=== PATIENT | male | born 1990 | race American Indian/Alaskan Native ===

== ENCOUNTER 2016-05-17 20:31 | Emergency (ER) | payer MEDICAID ==
[2016-05-17] MEDS ORDERED: Ketorolac 30 MG/ML SDV IVPUSH ONE (20:47)
[2016-05-17] MEDS ORDERED: Sodium Chloride 0.9% 1,000 ML IV ONE ×2 (20:47→22:02)
--- NOTE | 2016-05-17 20:53 | EDM.PDOC ---
ED HPI GENERAL MEDICAL PROBLEM - General Chief Complaint: Fever Stated Complaint: FEVER OF 89 Time Seen by Provider: 05/17/16 20:52 Source of Information: Reports: Patient History Limitations: Reports: No limitations - History of Present Illness INITIAL COMMENTS - FREE TEXT/NARRATIVE: c/o fever chills shaking body aches all day, been drinking liquids took 8 tylenol today general Pain Score (Numeric/FACES): 7 - Related Data Allergies Allergy/AdvReac Type Severity Reaction Status Date / Time azithromycin [From Zithromax] Allergy Hives Verified 05/19/16 09:32 cefaclor [From Ceclor] Allergy Hives Verified 05/19/16 09:32 Penicillins Allergy Hives Verified 05/19/16 09:32 tree nut [Pecans] Allergy Swelling Verified 05/19/16 09:32 Home Meds: Home Meds Acetaminophen [Tylenol Extra Strength] 1,000 mg PO PRN 05/18/16 [History] Past Medical History - Past Health History Medical/Surgical History: Denies Medical/Surgical History Social & Family History - Family History Family Medical History: Noncontributory - Tobacco Use Smoking Status *Q: Current Every Day Smoker Years of Tobacco use: 4 Packs/Tins Daily: 1 Used Tobacco, but Quit: No Second Hand Smoke Exposure: No - Caffeine Use Caffeine Use: Reports: Coffee, Soda - Alcohol Use Days Per Week of Alcohol Use: 1 Number of Drinks Per Day: 6 Total Drinks Per Week: 6 - Recreational Drug Use Recreational Drug Use: No - Living Situation & Occupation Living situation: Reports: with significant other Occupation: employed ED ROS GENERAL - Review of Systems Review Of Systems: ROS reveals no pertinent complaints other than HPI. ED EXAM, GENERAL - Physical Exam Exam: See Below Exam Limited By: No limitations General Appearance: alert, WD/WN, mild distress, other (general discomfort) Ears: normal external exam, normal canal, hearing grossly normal Ear Exam: bilateral ear: TM dull Nose: clear rhinorrhea Throat/Mouth: Normal voice, No airway compromise, Inflammation Head: atraumatic Neck: non-tender, full range of motion Respiratory/Chest: no respiratory distress, lungs clear, normal breath sounds, no accessory muscle use Cardiovascular: regular rate, rhythm GI/Abdominal: soft, non tender Neurological: alert, oriented, normal cognition, normal gait, no motor/sensory deficits Psychiatric: normal affect, normal mood Skin Exam: Warm, Dry Lymphatic: no adenopathy Course - Vital Signs Last Recorded V/S: Last Vital Signs Temp 37.1 C 05/18/16 00:13 Pulse 83 05/18/16 00:13 Resp 17 05/18/16 00:13 BP 135/99 H 05/18/16 00:13 Pulse Ox 99 05/18/16 00:13 - Orders/Labs/Meds Meds: Medications Discontinued Medications Generic Name Dose Route Start Last Admin Trade Name Suzy PRN Reason Stop Dose Admin Acetaminophen/Hydrocodone Bitart 1 tab 05/17/16 21:20 05/17/16 21:23 [place] 325-10 Mg PO 05/17/16 21:21 1 tab ONETIME ONE Administration Sodium Chloride 1,000 mls @ 999 mls/hr 05/17/16 20:47 05/17/16 21:06 Normal Saline IV 05/17/16 21:47 999 mls/hr .BOLUS ONE Administration Sodium Chloride 1,000 mls @ 999 mls/hr 05/17/16 22:02 05/17/16 22:09 Normal Saline IV 05/17/16 23:02 999 mls/hr .BOLUS ONE Administration Ketorolac Tromethamine 30 mg 05/17/16 20:47 05/17/16 21:06 Toradol IVPUSH 05/17/16 20:48 30 mg ONETIME ONE Administration Morphine Sulfate 2 mg 05/17/16 22:02 05/17/16 22:13 Morphine IVPUSH 05/17/16 22:03 2 mg ONETIME ONE Administration Ondansetron HCl 4 mg 05/17/16 22:02 05/17/16 22:10 Zofran IV 05/17/16 22:03 4 mg ONETIME ONE Administration - Re-Assessments/Exams Free Text/Narrative Re-Assessment/Exam: 05/17/16 23:21 feeling much better post IV+Rx Departure - Departure Time of Disposition: 00:15 Disposition: Home, Self-Care 01 Condition: good Clinical Impression: Flu syndrome Instructions: Fever, Adult, [id number] Forms: ED Department Discharge Additional Instructions: 1) sleep as much as possible 2) drink lots of liquids 3) continue tylenol or motrin as needed for fever and body aches 4) recheck as needed
[2016-05-17] MEDS ORDERED: Acetaminophen/HYDROcodone 325-10 MG Tab PO ONE (21:20)
[2016-05-17] MEDS ORDERED: Morphine 2 MG/ML Syringe IVPUSH ONE (22:02)
[2016-05-17] MEDS ORDERED: Ondansetron 4 MG/2 ML SDV IV ONE (22:02)
[2016-05-18 00:26] VITALS: BP 135/99
== END 2016-05-18 00:13 | disposition home or self-care (01) ==
LOC: DL.ED 20:31
DX: J11.1 Influenza due to unidentified influenza virus with other respiratory manifestations (principal); F17.210 Nicotine dependence, cigarettes, uncomplicated; Z88.0 Allergy status to penicillin; Z88.1 Allergy status to other antibiotic agents; Z88.8 Allergy status to other drugs, medicaments and biological substances
CPT/HCPCS: 87081; 87430; 87804; 96361; 96374; 96375; 99283; A9270; J1885; J2270; J2405; J7030; 99284

== ENCOUNTER 2016-05-18 16:29 | Emergency (ER) | payer MEDICAID ==
[2016-05-18 16:38] VITALS: BP 138/87
[2016-05-18] MEDS ORDERED: Sodium Chloride 0.9% 10 ML Syringe FLUSH PRN (17:02)
[2016-05-18] MEDS ORDERED: Sodium Chloride 0.9% 1,000 ML IV ONE ×2 (17:04→18:16)
[2016-05-18] MEDS ORDERED: Ondansetron 8 MG in Sodium Chloride 0.9% 50 ML IV ONE (17:05)
[2016-05-18 17:40] LABS: CHLORIDE,CL 104 mmol/L (101-111); SODIUM,NA 137 mmol/L (135-145)
[2016-05-18] MEDS ORDERED: Ketorolac 30 MG/ML SDV IVPUSH ONE (18:17)
[2016-05-18] MEDS ORDERED: HYDROmorphone 1 MG/ML Syringe IVPUSH ONE (18:17)
[2016-05-18] MEDS ORDERED: Levofloxacin/Dextrose 5%-Water 500 MG in Premix Bag 1 BAG IV ONE (18:18)
[2016-05-18] MEDS ORDERED: Benzonatate 100 MG Cap PO ONE (19:15)
--- NOTE | 2016-05-19 03:06 | ER ---
SUBJECTIVE: The patient is 25-year-old male, who comes in with multiple complaints, having fever, headache, nausea, vomiting, been vomiting, he feels dehydrated, is not getting better. He was seen yesterday at night in the emergency room by Dr. Graves and was evaluated with some blood work. He had a negative strep, negative flu test, and he was treated with multiple medicines, felt better and was sent home. However, even though his fever is less of a problem today, it was worse yesterday, and all lab work yesterday was negative, he still feels sick. He feels dry. He has been having vomiting. He feels dehydrated, he tried to drink a bunch of water, he vomited it all up. He denies any diarrhea, any melena, BRBPR, any dysuria, or hematuria. He has diffuse body aches and pains. He denies any trauma. He denies ear pain or sinus pain or sore throat. He does have a cough. It is dry, but bothersome at times. He does use tobacco. PAST MEDICAL HISTORY: He denies. He states he is healthy. CURRENT MEDICATIONS: He has been taking some Tylenol, but is hard to hold it down. ALLERGIES: He states he is allergic to azithromycin, causes hives. Ceclor causes hives. Penicillins cause hives. Peanuts cause swelling. SOCIAL HISTORY: He does use tobacco, has done so for 8 years. 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 He does drink coffee and sports drinks. No alcohol or drugs. REVIEW OF SYSTEMS: No fevers, chills, malaise, lethargy, headache, diffuse body aches, and pains. Dry cough. No shortness of breath. Some mild upper midepigastric abdominal tenderness only with nausea and vomiting, but he has had quite a bit of nonbloody nausea, vomiting. No diarrhea or bleeding. No bowel or bladder changes otherwise. No bites, stings, or rashes. No recent travel. No assault or trauma. Please see HPI. OBJECTIVE: Vital Signs: Height is 1.83 m, weight is 109 kg. He arrives with a temperature of 37.6 C, heart rate is 101, blood pressure is 138/87, respiratory rate 16, and oxygen 100% on room air. General: Pleasant, cooperative, polite. He appears under the weather, but he appears like he is normally healthy. A and O x3. GCS of 15. HEENT: He is normocephalic and atraumatic. HEENT exam not remarkable. Oropharynx is slightly dry. It is widely patent. Neck: Does have full range of motion. He has tenderness along the shoulders, upper back along the trapezius into the splenius capitis, over the scalp into the frontal part of his forehead. He has no mastoid tenderness. No signs of trauma. He does not have any nuchal rigidity. He has no lymphadenopathy. Chest: Clear. Occasional cough. No respiratory distress. No wheezing, rhonchi, or rales. CV: RRR. He can speak in full sentences. Back: No specific back tenderness. No CVAT. Extremities: No specific extremity tenderness. He has good pulses at all 4 extremities. Abdomen: His abdomen is mostly benign. He has some mild subjective upper midepigastric tenderness. ER COURSE: IV was placed. He was given IV fluids, labs were drawn. The scans were ordered, and he was given some Zofran for his vomiting, Toradol for pain, and hydromorphone for pain while the workup was being performed. LAB/STUDIES: CBC showed elevated white count of 18.8, he has no anemia, platelets were normal, and his differential showed a left shift with PMNs of 84.4, there were no band cells. His electrolytes were quite unremarkable. His potassium is mildly low at 3.4. His BUN and creatinine were normal. Anion gap normal. Glucose is normal at 93. Lactic acid normal at 1.1. His total bilirubin was 1.8, but his LFTs were all normal. His sed rate was almost normal at 16, his CRP was normal at 1.1. Blood cultures were obtained. His chest x- ray was obtained. It was read as normal. A CAT scan of his head was also read as normal. Continued ER course, once all labs and studies were back, the patient continued to improve. He was given a second liter of normal saline, he was given Tessalon Perles since his nausea was under control. He was given Levaquin 500 mg IV for empiric treatment. After a long ER stay and aggressive treatment, he felt markedly improved. He was ready to go home. His vitals were stable and he felt much improved, and his nausea and vomiting were controlled. ASSESSMENT: 1. Nausea and vomiting, nonbloody, resolved. 2. Volume depletion, IV fluids, given. 3. Febrile illness, fever controlled, blood cultures obtained, CT chest x-ray and blood work nonspecific for exact infection. 4. Acute bronchitis. Chest x-ray not remarkable, but the patient with cough and fevers, patient was given Levaquin 500 mg IV. Had Tessalon Perles. 5. Tobacco abuse. PLAN: Home, rest, aggressive fluids, try to urinate once an hour while awake. Prescription for Levaquin 500 mg one p.o. daily for 10 days. Zofran 4 mg for nausea and vomiting p.r.n., Tessalon Perles 200 mg 1 p.o. t.i.d. #10, hydrocodone 5/325 mg 1 to 2 p.o. q.4-6 h. p.r.n., #20, no refills. Stay with family or at least stay in close contact with family. May need to take a day off work. Stop smoking. Return for any emergent issues or changes. Otherwise, follow up with PCP in clinic. Get culture results either by ER or PCP in 2 days to see if on appropriate antibiotic. [facility] /[id number]
== END 2016-05-18 21:27 | disposition home or self-care (01) ==
LOC: DL.ED 16:29
DX: J20.9 Acute bronchitis, unspecified (principal); E86.9 Volume depletion, unspecified; R11.2 Nausea with vomiting, unspecified; R50.9 Fever, unspecified; Z88.1 Allergy status to other antibiotic agents; Z88.0 Allergy status to penicillin; Z91.010 Allergy to peanuts; F17.200 Nicotine dependence, unspecified, uncomplicated
CPT/HCPCS: 36415; 70450; 71020; 80053; 83605; 85025; 85651; 86140; 87040; 96361; 96365; 96375; 99284; A9270; J1170; J1885; J1956; J2405; J7030; J7050

== ENCOUNTER 2016-05-19 09:51 | Emergency (ER) | payer MEDICAID ==
--- NOTE | 2016-05-19 09:39 | EDM.PDOC ---
ED HPI GENERAL MEDICAL PROBLEM - General Stated Complaint: IN BY AMBULANCE Time Seen by Provider: 05/19/16 09:25 Source of Information: Reports: Patient History Limitations: Reports: No limitations - History of Present Illness INITIAL COMMENTS - FREE TEXT/NARRATIVE: This 25 yo male patient was brought to the ED by [facility] due to continued nausea/ vomiting, dizziness, vision changes, a headache and lightheadedness. The patient has been seen in the ED daily for the past 2 days. The patient reports he was seen yesterday and was given IV Zofran and IV Levaquin. The patient has not had a chance to sampler pickup his medication prescriptions given yesterday. The patient reports he was given IV fluids for the past couple of days, but most of the tests have been negative. The patient reports vomiting up a small amount of blood yesterday. The patient's mother reports that there was a family member recently diagnosed with Leukemia that due to the disease. 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 Head Pain Score (Numeric/FACES): 3 - Related Data Allergies Allergy/AdvReac Type Severity Reaction Status Date / Time azithromycin [From Zithromax] Allergy Hives Verified 05/19/16 09:32 cefaclor [From Ceclor] Allergy Hives Verified 05/19/16 09:32 Penicillins Allergy Hives Verified 05/19/16 09:32 tree nut [Pecans] Allergy Swelling Verified 05/19/16 09:32 Home Meds: Home Meds Acetaminophen [Tylenol Extra Strength] 1,000 mg PO PRN 05/18/16 [History] Past Medical History - Past Health History Medical/Surgical History: Denies Medical/Surgical History Social & Family History - Family History Family Medical History: Noncontributory - Tobacco Use Smoking Status *Q: Current Every Day Smoker Years of Tobacco use: 8 Packs/Tins Daily: 0.5 Used Tobacco, but Quit: No Month Tobacco Last Used: 12 Second Hand Smoke Exposure: No - Caffeine Use Caffeine Use: Reports: Coffee, Energy drinks, Soda - Alcohol Use Days Per Week of Alcohol Use: 1 Number of Drinks Per Day: 6 Total Drinks Per Week: 6 - Recreational Drug Use Recreational Drug Use: No - Living Situation & Occupation Living situation: Reports: with significant other Occupation: employed ED ROS GENERAL - Review of Systems Review Of Systems: ROS reveals no pertinent complaints other than HPI. ED EXAM, GENERAL - Physical Exam Exam: See Below Exam Limited By: No limitations General Appearance: alert, WD/WN, moderate distress Eye Exam: bilateral eye: EOMI, normal inspection, PERRL Ears: normal external exam, normal canal, hearing grossly normal, normal TMs Nose: normal inspection, normal mucosa, no blood Throat/Mouth: Normal inspection, Normal lips, Normal teeth, Normal gums, Normal oropharynx, Normal voice, No airway compromise Head: atraumatic, normocephalic Neck: normal inspection, supple, non-tender, full range of motion Respiratory/Chest: no respiratory distress, lungs clear, normal breath sounds, no accessory muscle use, chest non-tender Cardiovascular: normal peripheral pulses, regular rate, rhythm, no edema, no gallop, no JVD, no murmur, no rub GI/Abdominal: normal bowel sounds, soft, tender (diffuse tenderness, but needs to pass urine) (Male) Exam: Deferred Rectal (Males) Exam: Deferred Back Exam: normal inspection, full range of motion, NT Extremities: normal inspection, normal range of motion, non-tender, normal capillary refill, no pedal edema Neurological: alert, oriented, CN II-XII intact, normal cognition, normal gait, normal reflexes, no motor/sensory deficits Psychiatric: normal affect, normal mood Skin Exam: Warm, Dry, Intact, Normal color, No rash Lymphatic: no adenopathy Course - Vital Signs Last Recorded V/S: Last Vital Signs Temp 36.6 C 05/19/16 09:27 Pulse 72 05/19/16 10:56 Resp 16 05/19/16 10:56 BP 141/82 H 05/19/16 10:56 Pulse Ox 99 05/19/16 10:56 - Orders/Labs/Meds Orders: Active Orders 24 hr Category Date Time Status CULTURE BLOOD [BC] Stat Lab 05/19/16 09:35 Received Labs: Laboratory Tests 05/19/16 05/19/16 05/19/16 Range/Units 09:35 09:35 09:35 WBC 14.5 H (5.0-10.0) 10^3/uL RBC 5.15 (4.6-6.2) 10^6/uL Hgb 15.4 (14.0-18.0) g/dL Hct 43.5 (40.0-54.0) % MCV 84.5 (80-100) fL MCH 29.9 (27.0-34.0) pg MCHC 35.4 H (33.0-35.0) g/dL Plt Count 356 (150-450) 10^3/uL Neut % (Auto) 75.8 H (42.2-75.2) % Lymph % (Auto) 15.8 L (20.5-50.1) % [place] % (Auto) 7.8 (2-8) % Eos % (Auto) 0.3 L (1.0-3.0) % Baso % (Auto) 0.3 (0.0-1.0) % Sodium 141 (135-145) mmol/L Potassium 3.4 L (3.6-5.0) mmol/L Chloride 108 (101-111) mmol/L Carbon Dioxide 24.0 (21.0-31.0) mmol/L Anion Gap 12.4 BUN 6 L (7-18) mg/dL Creatinine 0.8 (0.6-1.3) mg/dL Est Cr Clr Drug Dosing TNP Estimated GFR (MDRD) > 60 BUN/Creatinine Ratio 7.50 Glucose 93 (74-105) mg/dL Lactic Acid 1.2 (0.5-2.2) mmol/L Calcium 8.8 (8.4-10.2) mg/dl Magnesium 1.9 (1.8-2.5) mg/dL Total Bilirubin 1.8 H (0.2-1.0) mg/dL AST 18 (10-42) IU/L ALT 24 (10-60) IU/L Alkaline Phosphatase 62 (42-121) IU/L Total Protein 7.5 (6.7-8.2) g/dl Albumin 4.1 (3.2-5.5) g/dl Globulin 3.4 Albumin/Globulin Ratio 1.21 Amylase 24 L (28-100) U/L Lipase 26 (22-51) U/L Urine Color (YELLOW) Urine Appearance (CLEAR) Urine pH (5.0-9.0) Ur Specific [place] (1.005-1.030) Urine Protein (NEGATIVE) Urine Glucose (UA) (NEGATIVE) Urine Ketones (NEGATIVE) Urine Occult Blood (NEGATIVE) Urine Nitrite (NEGATIVE) Urine Bilirubin (NEGATIVE) Urine Urobilinogen (0.2-1.0) mg/dL Ur Leukocyte Esterase (NEGATIVE) Urine RBC /HPF Urine WBC (0-5/HPF) /HPF Ur Epithelial Cells /HPF Urine Opiates Screen (NEGATIVE) Ur Oxycodone Screen (NEGATIVE) Urine Methadone Screen (NEGATIVE) Ur Barbiturates Screen (NEGATIVE) U Tricyclic Antidepress (NEGATIVE) Ur Phencyclidine Scrn (NEGATIVE) Ur Amphetamine Screen (NEGATIVE) U Methamphetamines Scrn (NEGATIVE) Urine MDMA Screen (NEGATIVE) U Benzodiazepines Scrn (NEGATIVE) Urine Cocaine Screen (NEGATIVE) U Marijuana (THC) Screen (NEGATIVE) 05/19/16 05/19/16 Range/Units 09:42 09:42 WBC (5.0-10.0) 10^3/uL RBC (4.6-6.2) 10^6/uL Hgb (14.0-18.0) g/dL Hct (40.0-54.0) % MCV (80-100) fL MCH (27.0-34.0) pg MCHC (33.0-35.0) g/dL Plt Count (150-450) 10^3/uL Neut % (Auto) (42.2-75.2) % Lymph % (Auto) (20.5-50.1) % [place] % (Auto) (2-8) % Eos % (Auto) (1.0-3.0) % Baso % (Auto) (0.0-1.0) % Sodium (135-145) mmol/L Potassium (3.6-5.0) mmol/L Chloride (101-111) mmol/L Carbon Dioxide (21.0-31.0) mmol/L Anion Gap BUN (7-18) mg/dL Creatinine (0.6-1.3) mg/dL Est Cr Clr Drug Dosing Estimated GFR (MDRD) BUN/Creatinine Ratio Glucose (74-105) mg/dL Lactic Acid (0.5-2.2) mmol/L Calcium (8.4-10.2) mg/dl Magnesium (1.8-2.5) mg/dL Total Bilirubin (0.2-1.0) mg/dL AST (10-42) IU/L ALT (10-60) IU/L Alkaline Phosphatase (42-121) IU/L Total Protein (6.7-8.2) g/dl Albumin (3.2-5.5) g/dl Globulin Albumin/Globulin Ratio Amylase (28-100) U/L Lipase (22-51) U/L Urine Color Yellow (YELLOW) Urine Appearance Clear (CLEAR) Urine pH 7.0 (5.0-9.0) Ur Specific [place] 1.010 (1.005-1.030) Urine Protein Negative (NEGATIVE) Urine Glucose (UA) Negative (NEGATIVE) Urine Ketones Trace H (NEGATIVE) Urine Occult Blood Negative (NEGATIVE) Urine Nitrite Negative (NEGATIVE) Urine Bilirubin Negative (NEGATIVE) Urine Urobilinogen 0.2 (0.2-1.0) mg/dL Ur Leukocyte Esterase Negative (NEGATIVE) Urine RBC Not seen /HPF Urine WBC Not seen (0-5/HPF) /HPF Ur Epithelial Cells Rare /HPF Urine Opiates Screen Negative (NEGATIVE) Ur Oxycodone Screen Negative (NEGATIVE) Urine Methadone Screen Negative (NEGATIVE) Ur Barbiturates Screen Negative (NEGATIVE) U Tricyclic Antidepress Negative (NEGATIVE) Ur Phencyclidine Scrn Negative (NEGATIVE) Ur Amphetamine Screen Negative (NEGATIVE) U Methamphetamines Scrn Negative (NEGATIVE) Urine MDMA Screen Negative (NEGATIVE) U Benzodiazepines Scrn Negative (NEGATIVE) Urine Cocaine Screen Negative (NEGATIVE) U Marijuana (THC) Screen Negative (NEGATIVE) Meds: Medications Discontinued Medications Generic Name Dose Route Start Last Admin Trade Name Freq PRN Reason Stop Dose Admin Sodium Chloride 1,000 mls @ 999 mls/hr 05/19/16 09:39 05/19/16 09:57 Normal Saline IV 05/19/16 10:39 999 mls/hr .BOLUS ONE Administration Iopamidol 100 ml 05/19/16 10:56 Isovue-300 (61%) IVPUSH 05/19/16 10:57 ONETIME ONE Ondansetron HCl 4 mg 05/19/16 09:39 05/19/16 09:57 Zofran IV 05/19/16 09:40 4 mg ONETIME ONE Administration Departure - Departure Time of Disposition: 11:29 Disposition: DC/Tfer to Acute Hospital 02 Condition: poor Clinical Impression: Vision changes Leukocytosis, unspecified Qualifiers: Leukocytosis type: bandemia Qualified Code(s): D72.825 - Bandemia Headache Qualifiers: Headache type: unspecified Headache chronicity pattern: acute headache Intractability: not intractable Qualified Code(s): R51 - Headache Fever Qualifiers: Fever type: unspecified Qualified Code(s): R50.9 - Fever, unspecified Care Plan Goals: Discussed the history, labs, CT, x-ray and previous treatments with Dr. Montes (ED provider with [facility] in [place]). Dr. Montes accepted the patient for continued evaluation and management. The patient will be transported by [facility]. - My Orders Last 24 Hours: My Active Orders 05/19/16 09:35 CULTURE BLOOD [BC] Stat - Assessment/Plan Last 24 Hours: My Active Orders 05/19/16 09:35 CULTURE BLOOD [BC] Stat
[~2016-05-19 09:51] MED LIST: Ondansetron 4 MG/2 ML SDV IV ONE; Sodium Chloride 0.9% 1,000 ML IV ONE
[2016-05-19 10:02] LABS: CHLORIDE,CL 108 mmol/L (101-111); SODIUM,NA 141 mmol/L (135-145)
[2016-05-19 10:56] VITALS: BP 141/82
[2016-05-19] MEDS ORDERED: Iopamidol 612 MG/ML 100 ML Bottle IVPUSH ONE (10:56)
--- NOTE | 2016-05-19 11:24 | CT ---
CLINICAL HISTORY: 25-year-old 240 pound male smoker with headache, nausea, vomiting and abnormally e levated white blood cell count (WBC 14,400 which is down from 18,000 after dose of Levaquin). SCAN TECHNIQUE: Volume acquisition of data from the abdomen and pelvis obtained without oral ingesti on of contrast and during the intravenous administration 100 cc nonionic Isovue contrast while the p atient was lying supine on the Siemens multislice CT scanner [facility]. All data archived in the PACS system for storage, reformatting and study. INTERPRETATION: 1. Gallbladder normal size and anatomic configuration. Liver, stomach, spleen, pancreas and adrenal glands unremarkable. 2. Normal reniform size, axis and configuration. No sign of renal cortical mass lesion, nephrolithia sis or obstructive uropathy. Unenhanced symmetrically distended urinary bladder normal. 3. Midline prostate gland and symmetric normal-appearing seminal vesicles. 4. Normal appendix identified in the right lower quadrant. 5. No sign of pelvic or abdominal mass lesion, inflammatory "dirty" peritoneal fat, mechanical bowel obstruction, ascites or free intraperitoneal air (a few small scattered diverticula sigmoid colon). 6. Normal caliber aortoiliac vessels. Lumbar spine unremarkable. No ventral wall hernias. 7. Normal cardiac size. Lung bases clear. CONCLUSION: No acute intraperitoneal abnormality.
== END 2016-05-19 11:55 ==
LOC: DL.ED 09:51
DX: D72.825 Bandemia (principal); R51 Headache; R50.9 Fever, unspecified; F17.200 Nicotine dependence, unspecified, uncomplicated; Z88.0 Allergy status to penicillin; Z88.8 Allergy status to other drugs, medicaments and biological substances
CPT/HCPCS: 36415; 74177; 80053; 80305; 81001; 82150; 83605; 83690; 83735; 85025; 87040; 96361; 96374; 99285; J2405; J7030; Q9967; 99284

== ENCOUNTER 2019-04-15 00:47 | Emergency (ER) | payer BC, MEDICAID ==
[2019-04-15 00:41] VITALS: BP 133/96; PULSE 78
[2019-04-15] MEDS ORDERED: Sodium Chloride 0.9% 1,000 ML IV ONE (00:48)
[2019-04-15] MEDS ORDERED: HYDROmorphone 1 MG/ML Syringe IVPUSH ONE ×2 (00:48→01:26)
[2019-04-15] MEDS ORDERED: Iopamidol 612 MG/ML 100 ML Bottle IVPUSH ONE (00:49)
--- NOTE | 2019-04-15 00:56 | EDM.PDOC ---
"ED HPI GENERAL MEDICAL PROBLEM - General Chief Complaint: Abdominal Pain Stated Complaint: AMBULANCE Time Seen by Provider: 04/15/19 00:53 Source of Information: Reports: Patient History Limitations: Reports: No Limitations - History of Present Illness INITIAL COMMENTS - FREE TEXT/NARRATIVE: ED via [facility] with c/o RLQ pain, sudden onset approximately 30minutes prior. Nausea with vomiting x 2. BM after onset of pain without change. Hx kidney stone in remote hx, didn't feel like this. No prior abdominal surgery. Right Lower Abdominal Pain Score (Numeric/FACES): 6 - Related Data Allergies Allergy/AdvReac Type Severity Reaction Status Date / Time azithromycin [From Zithromax] Allergy Hives Verified 04/15/19 00:39 cefaclor [From Ceclor] Allergy Hives Verified 04/15/19 00:39 Penicillins Allergy Hives Verified 04/15/19 00:39 tree nut [Pecans] Allergy Swelling Verified 04/15/19 00:39 Home Meds: Home Meds Acetaminophen [Tylenol Extra Strength] 1,000 mg PO PRN 05/18/16 [History] Past Medical History - Past Health History Medical/Surgical History: Denies Medical/Surgical History Social & Family History - Family History Family Medical History: Noncontributory - Tobacco Use Smoking Status *Q: Current Every Day Smoker Years of Tobacco use: 13 Packs/Tins Daily: 1 - Caffeine Use Caffeine Use: Reports: Energy Drinks - Recreational Drug Use Recreational Drug Use: No - Living Situation & Occupation Living situation: Reports: with Significant Other Occupation: Employed ED ROS GENERAL - Review of Systems Review Of Systems: Comprehensive ROS is negative, except as noted in HPI. Constitutional: Reports: Fever (yesterday) HEENT: Reports: No Symptoms, Vision Change GI/Abdominal: Reports: Abdominal Pain (RLQ), Nausea, Vomiting Musculoskeletal: Reports: No Symptoms Skin: Reports: No Symptoms Neurological: Reports: No Symptoms ED EXAM, GI/ABD - Physical Exam Exam: See Below Exam Limited By: No Limitations General Appearance: Alert, Moderate Distress Eyes: Bilateral: EOMI Ears: Normal External Exam Nose: Normal Inspection Throat/Mouth: Normal Inspection, Normal Lips Head: Atraumatic, Normocephalic Neck: Normal Inspection Respiratory/Chest: No Respiratory Distress, Lungs Clear Cardiovascular: Normal Peripheral Pulses, Regular Rate, Rhythm, No Rub GI/Abdominal Exam: Soft, Guarding, Tender, Abnormal Bowel Sounds (decreased). No: Rebound Back Exam: Normal Inspection, Full Range of Motion Extremities: Normal Inspection, Normal Range of Motion Neurological: Alert, Oriented, Normal Cognition Psychiatric: Anxious Skin Exam: Warm, Dry, Intact, Normal Color, Tattoo(s) Course - Vital Signs Last Recorded V/S: Last Vital Signs Temp 97.5 F 04/15/19 00:40 Pulse 78 04/15/19 00:40 Resp 20 04/15/19 00:40 BP 133/96 H 04/15/19 00:40 Pulse Ox 97 04/15/19 00:40 - Orders/Labs/Meds Orders: Active Orders 24 hr Category Date Time Status Abdomen Pelvis w Cont [CT] Urgent Exams 04/15/19 00:48 Taken UA RFX CHRISTIAN AND CULT IF INDIC [URIN] Urgent Lab 04/15/19 00:50 Ordered Labs: Laboratory Tests 04/15/19 04/15/19 04/15/19 Range/Units 00:56 00:56 00:56 WBC 14.9 H (5.0-10.0) 10^3/uL RBC 5.38 (4.6-6.2) 10^6/uL Hgb 16.2 (14.0-18.0) g/dL Hct 45.5 (40.0-54.0) % MCV 84.6 (80-100) fL MCH 30.1 (27.0-34.0) pg MCHC 35.6 H (33.0-35.0) g/dL Plt Count 399 (150-450) 10^3/uL Neut % (Auto) 69.7 (42.2-75.2) % Lymph % (Auto) 20.3 L (20.5-50.1) % Coal % (Auto) 7.9 (2-8) % Eos % (Auto) 1.6 (1.0-3.0) % Baso % (Auto) 0.5 (0.0-1.0) % Sodium 135 (135-145) mmol/L Potassium 3.4 L (3.6-5.0) mmol/L Chloride 103 (101-111) mmol/L Carbon Dioxide 23.0 (21.0-31.0) mmol/L Anion Gap 12.4 BUN 12 (7-18) mg/dL Creatinine 0.8 (0.6-1.3) mg/dL Est Cr Clr Drug Dosing 149.54 mL/min Estimated GFR (MDRD) > 60 BUN/Creatinine Ratio 15.00 Glucose 109 H (74-105) mg/dL Lactic Acid 1.3 (0.5-2.0) mmol/L Calcium 8.9 (8.4-10.2) mg/dl Total Bilirubin 0.9 (0.2-1.0) mg/dL AST 31 (10-42) IU/L ALT 42 (10-60) IU/L Alkaline Phosphatase 80 (42-121) IU/L Total Protein 7.6 (6.7-8.2) g/dl Albumin 4.3 (3.2-5.5) g/dl Globulin 3.3 Albumin/Globulin Ratio 1.30 Meds: Medications Discontinued Medications Generic Name Dose Route Start Last Admin Trade Name Freq PRN Reason Stop Dose Admin Hydromorphone HCl 1 mg 04/15/19 00:48 04/15/19 00:51 Dilaudid IVPUSH 04/15/19 00:49 1 mg ONETIME ONE Administration Hydromorphone HCl 1 mg 04/15/19 01:26 04/15/19 01:31 Dilaudid IVPUSH 04/15/19 01:27 1 mg ONETIME ONE Administration Sodium Chloride 1,000 mls @ 999 mls/hr 04/15/19 00:48 04/15/19 00:51 Normal Saline IV 04/15/19 01:48 999 mls/hr .BOLUS ONE Administration Iopamidol 100 ml 04/15/19 00:49 04/15/19 01:04 Isovue-300 (61%) IVPUSH 04/15/19 00:50 100 ml ONETIME ONE Administration Ketorolac Tromethamine 30 mg 04/15/19 01:51 04/15/19 01:56 Toradol IVPUSH 04/15/19 01:52 30 mg ONETIME ONE Administration - Radiology Interpretation Free Text/Narrative:: [facility] [place] [facility] Final Radiology Report Call: [phone] assistance Online chat: [email or web address] Name: YAAKOV MARTÍNEZ Age: 28Years M Date: 04/15/2019 SSN: -- : [id number] Study: CT ABDOMEN/PELVIS W Requesting Physician: STEVE HWANG Images: [id number] Addl Studies: Provided Clinical History: Contrast: With Contrast Medium: Contrast Amount: 100 mL Contrast Method: left hand Page 1 of 2 PROCEDURE INFORMATION: Exam: CT Abdomen And Pelvis With Contrast Exam date and time: 04/15/2019 1:06 AM Age: 28 years old Clinical indication: Fever and vomiting and other: Rlq pain, wbc 14,000 TECHNIQUE: Imaging protocol: Computed tomography of the abdomen and pelvis with intravenous contrast. Radiation optimization: All CT scans at this facility use at least one of these dose optimization techniques: automated exposure control; mA and/or kV adjustment per patient size (includes targeted exams where dose is matched to clinical indication); or iterative reconstruction. Contrast material: [id number]; Contrast volume: 100 ml; Contrast route: LEFT HAND ; COMPARISON: CT Abdomen Pelvis w Cont 05/19/2016 10:26 AM FINDINGS: Lungs: There are no suspicious pulmonary nodules or areas of lung consolidation. Liver: The liver is normal in architecture, without suspicious abnormality. Gallbladder and bile ducts: No calcified gallstones. No ductal dilation. Pancreas: The pancreatic parenchyma is normal in bulk and sharply marginated. Duct is not dilated. No calcifications, masses, or abnormal fluid collections. Spleen: Spleen is normal in size. No mass or fluid collection. Adrenals: There are no adrenal masses. Kidneys and ureters: Normal in parenchymal bulk. No hydronephrosis or asymmetric perinephric stranding. No solid masses. No stones. Stomach and bowel: No significant abnormalities of the stomach. There are no dilated or thickened small bowel loops. Gas and stool of appropriate quantities are seen in the colon. No mass. Very low density within wall of a portion of the intestines, consistent with chronic, burnt out Crohn disease. YAAKOV MARTÍNEZ | Final Radiology Report CONFIDENTIALITY STATEMENT This report is intended only for use by the referring physician, and only in accordance with law. If you received this in error, call [phone]. Page 2 of 2 Appendix: The appendix is seen. It is normal. Intraperitoneal space: No ascites. No abscess. No inflammation within the intra- abdominal fat. No pneumoperitoneum. No mass. Vasculature: Unremarkable. No abdominal aortic aneurysm. Lymph nodes: There are no enlarged celiac, mesenteric, periportal, extraperitoneal or inguinal lymph nodes. Bladder: There is no bladder wall thickening, mass, or calculus. Reproductive: Prostate gland is normal in size. The seminal vesicles are unremarkable. Bones/joints: Age appropriate. No acute fracture. No dislocation. Soft tissues: See Intraperitoneal Space Finding. IMPRESSION: 1. No sign of acute intra-abdominal pathology. Normal appendix. 2. No significant interval change when compared to the CT Abdomen Pelvis w Cont 05/19/2016 10:26 AM. Thank you for allowing us to participate in the care of your patient. Dictated and Authenticated by: Rustam Keller MD 04/15/2019 1:42 AM Central Time ([place] & [place]) - Re-Assessments/Exams Free Text/Narrative Re-Assessment/Exam: 04/15/19 02:[address] unremarkable, no acute findings. Departure - Departure Time of Disposition: 02:35 Disposition: Home, Self-Care 01 Condition: Good Clinical Impression: Abdominal pain Qualifiers: Abdominal location: right lower quadrant Qualified Code(s): R10.31 - Right lower quadrant pain - Discharge Information *PRESCRIPTION DRUG MONITORING PROGRAM REVIEWED*: No *COPY OF PRESCRIPTION DRUG MONITORING REPORT IN PATIENT ANAMIKA: No Instructions: Abdominal Pain, Adult, [id number] Forms: ED Department Discharge Additional Instructions: Do not return ot work prior to 4 pm today Light diet in am start with liquid, advance as tolerated Follow up if symptoms worsen, repeated vomiting with fever, noting blood in stool. Sepsis Event Note - Evaluation Sepsis Screening Result: No Definite Risk - Focused Exam Vital Signs: Vital Signs Temp Pulse Resp BP Pulse Ox 04/15/19 00:40 97.5 F 78 20 133/96 H 97 Date Exam was Performed: 04/15/19 Time Exam was Performed: 02:41 - My Orders Last 24 Hours: My Active Orders 04/15/19 00:48 Abdomen Pelvis w Cont [CT] Urgent 04/15/19 00:50 UA RFX CHRISTIAN AND CULT IF INDIC [URIN] Urgent - Assessment/Plan Last 24 Hours: My Active Orders 04/15/19 00:48 Abdomen Pelvis w Cont [CT] Urgent 04/15/19 00:50 UA RFX CHRISTIAN AND CULT IF INDIC [URIN] Urgent"
[2019-04-15 01:22] LABS: ANION GAP 12.4; CHLORIDE,CL 103 mmol/L (101-111); SODIUM,NA 135 mmol/L (135-145)
[2019-04-15] MEDS ORDERED: Ketorolac 30 MG/ML SDV IVPUSH ONE (01:51)
== END 2019-04-15 02:40 | disposition home or self-care (01) ==
LOC: DL.ED 00:47
DX: R10.31 Right lower quadrant pain (principal); F17.210 Nicotine dependence, cigarettes, uncomplicated; Z88.0 Allergy status to penicillin; Z88.1 Allergy status to other antibiotic agents; Z91.010 Allergy to peanuts
CPT/HCPCS: 36415; 74177; 80053; 83605; 85025; 96361; 96374; 96375; 96376; 99285; J1170; J1885; J7030; Q9967

== ENCOUNTER 2019-04-19 03:39 | Emergency (ER) | payer BC, MEDICAID ==
[2019-04-19] MEDS ORDERED: Ondansetron 4 MG/2 ML SDV IV ONE (03:47)
[2019-04-19] MEDS ORDERED: HYDROmorphone 1 MG/ML Syringe IVPUSH ONE (03:47)
[2019-04-19] MEDS ORDERED: Sodium Chloride 0.9% 10 ML Syringe FLUSH PRN (03:47)
[2019-04-19] MEDS ORDERED: Sodium Chloride 0.9% 1,000 ML IV ONE (03:47)
[2019-04-19] MEDS ORDERED: Iopamidol 612 MG/ML 100 ML Bottle IVPUSH ONE (03:48)
[2019-04-19 03:55] VITALS: BP 143/93; PULSE 72
--- NOTE | 2019-04-19 04:17 | EDM.PDOC ---
ED HPI GENERAL MEDICAL PROBLEM - General Chief Complaint: Abdominal Pain Stated Complaint: STOMACH PAIN Time Seen by Provider: 04/19/19 04:00 Source of Information: Reports: Patient, RN, RN Notes Reviewed History Limitations: Reports: No Limitations - History of Present Illness INITIAL COMMENTS - FREE TEXT/NARRATIVE: patient presents to the ER with complaint of severe right lower quadrant pain that wraps around to the right flank. Patient states he had this pain on Wednesday night/Wednesday morning, and was brought to the ER per ambulance. A CT was done at that time as well as lab work. No abnormal findings on the CT. Patient admits to history of kidney stones in the past. Patient states he still has his gallbladder and his appendix. Patient states he has had 4 bowel movements today which were normal for him, and he states this bowel pattern is normal for him. Patient states after being seen in the ER on Wednesday, the pain resolved and he has been pain-free until midnight tonight. He states the pain began as a discomfort, and became a sharp stabbing pain which he rates a 9/10. Patient states he has vomited with the pain. Patient denies the pain radiating into the groin or testicle pain. Patient denies fever or chills. Patient denies any urinary symptoms, states his urine has been clear yellow. Patient denies blood in the urine, stool, vomit. Onset: Today, Sudden Duration: Constant, Getting Worse Location: Reports: Abdomen Quality: Reports: Sharp, Stabbing Severity: Severe Improves with: Reports: None Worsens with: Reports: None Associated Symptoms: Reports: Nausea/Vomiting Right Upper Abdominal Pain Score (Numeric/FACES): 9 - Related Data Allergies Allergy/AdvReac Type Severity Reaction Status Date / Time azithromycin [From Zithromax] Allergy Hives Verified 04/19/19 03:49 cefaclor [From Ceclor] Allergy Hives Verified 04/19/19 03:49 Penicillins Allergy Hives Verified 04/19/19 03:49 tree nut [Pecans] Allergy Swelling Verified 04/19/19 03:49 Home Meds: Home Meds Acetaminophen [Tylenol Extra Strength] 1,000 mg PO Q4H PRN 05/18/16 [History] Past Medical History - Past Health History Medical/Surgical History: Denies Medical/Surgical History Social & Family History - Family History Family Medical History: Noncontributory - Tobacco Use Smoking Status *Q: Current Every Day Smoker Years of Tobacco use: 13 Packs/Tins Daily: 1 Used Tobacco, but Quit: No Second Hand Smoke Exposure: Yes - Caffeine Use Caffeine Use: Reports: Energy Drinks - Recreational Drug Use Recreational Drug Use: No - Living Situation & Occupation Living situation: Reports: with Significant Other Occupation: Employed ED ROS GENERAL - Review of Systems Review Of Systems: Comprehensive ROS is negative, except as noted in HPI. ED EXAM, GI/ABD - Physical Exam Exam: See Below Exam Limited By: No Limitations General Appearance: Alert, WD/WN, No Apparent Distress Eyes: Bilateral: Normal Appearance, EOMI Ears: Normal External Exam, Hearing Grossly Normal Nose: Normal Inspection Throat/Mouth: Normal Inspection, Normal Voice, No Airway Compromise Head: Atraumatic, Normocephalic Neck: Normal Inspection, Supple, Non-Tender, Full Range of Motion Respiratory/Chest: No Respiratory Distress, Lungs Clear, Normal Breath Sounds, No Accessory Muscle Use, Chest Non-Tender Cardiovascular: Normal Peripheral Pulses, Regular Rate, Rhythm, No Edema, No Gallop, No JVD, No Murmur, No Rub GI/Abdominal Exam: Normal Bowel Sounds, Soft, Guarding, Tender (RLQ), Abnormal Bowel Sounds (hypoactive) (Male) Exam: Deferred Rectal (Males) Exam: Deferred Back Exam: Normal Inspection, Full Range of Motion, CVA Tenderness (R) Extremities: Normal Inspection, Normal Range of Motion, Non-Tender, Normal Capillary Refill, No Pedal Edema Neurological: Alert, Oriented, CN II-XII Intact, Normal Cognition, Normal Gait, Normal Reflexes, No Motor/Sensory Deficits Psychiatric: Normal Affect, Anxious Skin Exam: Warm, Dry, Intact, Normal Color, No Rash Lymphatic: No Adenopathy Course - Vital Signs Last Recorded V/S: Last Vital Signs Temp 97.7 F 04/19/19 03:54 Pulse 72 04/19/19 03:54 Resp 24 H 04/19/19 03:54 BP 143/93 H 04/19/19 03:54 Pulse Ox 99 04/19/19 03:54 - Orders/Labs/Meds Orders: Active Orders 24 hr Category Date Time Status Peripheral IV Care [RC] . DIRECTED Care 04/19/19 03:48 Active Abdomen Pelvis w Cont [CT] Urgent Exams 04/19/19 03:48 Taken Sodium Chloride 0.9% [Saline Flush] Med 04/19/19 03:47 Active 10 ml FLUSH ASDIRECTED PRN Peripheral IV Insertion Adult [OM.PC] Stat Oth 04/19/19 03:46 Ordered Medication Orders Sodium Chloride (Saline Flush) 10 ml FLUSH ASDIRECTED PRN PRN Reason: Keep Vein Open Last Admin: 04/19/19 04:03 Dose: 10 ml Labs: Laboratory Tests 04/19/19 04/19/19 04/19/19 Range/Units 03:52 03:52 03:52 WBC 15.6 H (5.0-10.0) 10^3/uL RBC 5.74 (4.6-6.2) 10^6/uL Hgb 17.2 (14.0-18.0) g/dL Hct 48.7 (40.0-54.0) % MCV 84.8 (80-100) fL MCH 30.0 (27.0-34.0) pg MCHC 35.3 H (33.0-35.0) g/dL Plt Count 456 H (150-450) 10^3/uL Neut % (Auto) 70.1 (42.2-75.2) % Lymph % (Auto) 17.5 L (20.5-50.1) % [place] % (Auto) 10.3 H (2-8) % Eos % (Auto) 1.7 (1.0-3.0) % Baso % (Auto) 0.4 (0.0-1.0) % Sodium 140 (135-145) mmol/L Potassium 3.8 (3.6-5.0) mmol/L Chloride 106 (101-111) mmol/L Carbon Dioxide 23.0 (21.0-31.0) mmol/L Anion Gap 14.8 BUN 11 (7-18) mg/dL Creatinine 1.0 (0.6-1.3) mg/dL Est Cr Clr Drug Dosing 119.63 mL/min Estimated GFR (MDRD) > 60 BUN/Creatinine Ratio 11.00 Glucose 106 H (74-105) mg/dL Calcium 9.3 (8.4-10.2) mg/dl Total Bilirubin 0.8 (0.2-1.0) mg/dL AST 31 (10-42) IU/L ALT 47 (10-60) IU/L Alkaline Phosphatase 89 (42-121) IU/L Total Protein 8.3 H (6.7-8.2) g/dl Albumin 4.7 (3.2-5.5) g/dl Globulin 3.6 Albumin/Globulin Ratio 1.31 Amylase 22 L (28-100) U/L Lipase 27 (22-51) U/L Urine Color (YELLOW) Urine Appearance (CLEAR) Urine pH (5.0-9.0) Ur Specific [place] (1.005-1.030) Urine Protein (NEGATIVE) Urine Glucose (UA) (NEGATIVE) Urine Ketones (NEGATIVE) Urine Occult Blood (NEGATIVE) Urine Nitrite (NEGATIVE) Urine Bilirubin (NEGATIVE) Urine Urobilinogen (0.2-1.0) mg/dL Ur Leukocyte Esterase (NEGATIVE) Urine RBC /HPF Urine WBC (0-5/HPF) /HPF Ur Epithelial Cells (NOT SEEN) /HPF Amorphous Sediment (NOT SEEN) /HPF Urine Bacteria (0-FEW/HPF) /HPF Urine Mucus (NOT SEEN) /LPF 04/19/19 Range/Units 05:14 WBC (5.0-10.0) 10^3/uL RBC (4.6-6.2) 10^6/uL Hgb (14.0-18.0) g/dL Hct (40.0-54.0) % MCV (80-100) fL MCH (27.0-34.0) pg MCHC (33.0-35.0) g/dL Plt Count (150-450) 10^3/uL Neut % (Auto) (42.2-75.2) % Lymph % (Auto) (20.5-50.1) % [place] % (Auto) (2-8) % Eos % (Auto) (1.0-3.0) % Baso % (Auto) (0.0-1.0) % Sodium (135-145) mmol/L Potassium (3.6-5.0) mmol/L Chloride (101-111) mmol/L Carbon Dioxide (21.0-31.0) mmol/L Anion Gap BUN (7-18) mg/dL Creatinine (0.6-1.3) mg/dL Est Cr Clr Drug Dosing mL/min Estimated GFR (MDRD) BUN/Creatinine Ratio Glucose (74-105) mg/dL Calcium (8.4-10.2) mg/dl Total Bilirubin (0.2-1.0) mg/dL AST (10-42) IU/L ALT (10-60) IU/L Alkaline Phosphatase (42-121) IU/L Total Protein (6.7-8.2) g/dl Albumin (3.2-5.5) g/dl Globulin Albumin/Globulin Ratio Amylase (28-100) U/L Lipase (22-51) U/L Urine Color Yellow (YELLOW) Urine Appearance Slightly cloudy (CLEAR) Urine pH 8.5 (5.0-9.0) Ur Specific [place] 1.020 (1.005-1.030) Urine Protein 30 H (NEGATIVE) Urine Glucose (UA) Negative (NEGATIVE) Urine Ketones Negative (NEGATIVE) Urine Occult Blood Trace-intact H (NEGATIVE) Urine Nitrite Negative (NEGATIVE) Urine Bilirubin Negative (NEGATIVE) Urine Urobilinogen 0.2 (0.2-1.0) mg/dL Ur Leukocyte Esterase Negative (NEGATIVE) Urine RBC 5-10 H /HPF Urine WBC Not seen (0-5/HPF) /HPF Ur Epithelial Cells Rare (NOT SEEN) /HPF Amorphous Sediment Moderate (NOT SEEN) /HPF Urine Bacteria Few (0-FEW/HPF) /HPF Urine Mucus Few H (NOT SEEN) /LPF Meds: Medications Generic Name Dose Route Start Last Admin Trade Name Suzy PRN Reason Stop Dose Admin Sodium Chloride 10 ml 04/19/19 03:47 04/19/19 04:03 Saline Flush FLUSH 10 ml ASDIRECTED PRN Administration Keep Vein Open Discontinued Medications Generic Name Dose Route Start Last Admin Trade Name Suzy PRN Reason Stop Dose Admin Fentanyl 100 mcg 04/19/19 04:34 04/19/19 04:41 Sublimaze IVPUSH 04/19/19 04:35 100 mcg ONETIME ONE Administration Hydromorphone HCl 1 mg 04/19/19 03:47 04/19/19 04:04 Dilaudid IVPUSH 04/19/19 03:48 1 mg ONETIME ONE Administration Sodium Chloride 1,000 mls @ 999 mls/hr 04/19/19 03:47 04/19/19 04:02 Normal Saline IV 04/19/19 04:47 999 mls/hr .BOLUS ONE Administration Iopamidol 100 ml 04/19/19 03:48 04/19/19 04:45 Isovue-300 (61%) IVPUSH 04/19/19 03:49 75 ml ONETIME ONE Administration Ketorolac Tromethamine 30 mg 04/19/19 05:07 04/19/19 05:13 Toradol IVPUSH 04/19/19 05:08 30 mg ONETIME ONE Administration Metoclopramide HCl 10 mg 04/19/19 04:34 04/19/19 04:41 Reglan IVPUSH 04/19/19 04:35 10 mg ONETIME ONE Administration Ondansetron HCl 4 mg 04/19/19 03:47 04/19/19 04:02 Zofran IV 04/19/19 03:48 4 mg ONETIME ONE Administration - Radiology Interpretation Free Text/Narrative:: Abdomen/Pelvis CT with contrast: FINDINGS: Liver: Normal. No mass. Gallbladder and bile ducts: Normal. No calcified stones. No ductal dilation. Pancreas: Normal. No ductal dilation. Spleen: Normal. No splenomegaly. Adrenals: Normal. No mass. Kidneys and ureters: Mild right hydronephrosis with an obstructing 3 mm stone in the proximal ureter. Mild right perinephric edema. No left hydronephrosis or hydroureter. Stomach and bowel: Unremarkable. No obstruction. No mucosal thickening. Appendix: Normal appendix. No acute appendicitis. Intraperitoneal space: Unremarkable. No free air. No significant fluid collection. Vasculature: Unremarkable. No abdominal aortic aneurysm. Lymph nodes: Unremarkable. No enlarged lymph nodes. Bladder: Unremarkable as visualized. Reproductive: Unremarkable as visualized. Bones/joints: Unremarkable. No acute fracture. Soft tissues: Unremarkable. IMPRESSION: 1. Mild right hydronephrosis with an obstructing 3 mm stone in the proximal ureter. 2. No acute appendicitis. Thank you for allowing us to participate in the care of your patient. Dictated and Authenticated by: Torres Perez MD 04/19/2019 5:03 AM Central Time ([place] & [place]) See rad report - Re-Assessments/Exams Free Text/Narrative Re-Assessment/Exam: 04/19/19 05:50 Discussed patient case with Dr. West, Urologist at [facility]. He states the patient can follow up with him this week if needed. He states the patient has a 70% chance of passing the stone on his own. It is likely the elevated WBC is a stress reaction. Patient pain much improved after Toradol given. Departure - Departure Time of Disposition: 05:45 Disposition: Home, Self-Care 01 Condition: Fair Clinical Impression: Kidney stone on right side - Discharge Information *PRESCRIPTION DRUG MONITORING PROGRAM REVIEWED*: No *COPY OF PRESCRIPTION DRUG MONITORING REPORT IN PATIENT ANAMIKA: No Instructions: Kidney Stones, [id number] Forms: ED Department Discharge Additional Instructions: Drink plenty of fluids RX: Ketorolac, Zofran Follow up with your primary care facility for referral to Dr. West at Urology at [facility] in [place] Sepsis Event Note - Evaluation Sepsis Screening Result: No Definite Risk - Focused Exam Vital Signs: Vital Signs Temp Pulse Resp BP Pulse Ox 04/19/19 03:54 97.7 F 72 24 H 143/93 H 99 Date Exam was Performed: 04/19/19 Time Exam was Performed: 05:50 - My Orders Last 24 Hours: My Active Orders 04/19/19 03:46 Peripheral IV Insertion Adult [OM.PC] Stat 04/19/19 03:47 Sodium Chloride 0.9% [Saline Flush] 10 ml FLUSH ASDIRECTED PRN 04/19/19 03:48 Peripheral IV Care [RC] . DIRECTED Abdomen Pelvis w Cont [CT] Urgent - Assessment/Plan Last 24 Hours: My Active Orders 04/19/19 03:46 Peripheral IV Insertion Adult [OM.PC] Stat 04/19/19 03:47 Sodium Chloride 0.9% [Saline Flush] 10 ml FLUSH ASDIRECTED PRN 04/19/19 03:48 Peripheral IV Care [RC] . DIRECTED Abdomen Pelvis w Cont [CT] Urgent
[2019-04-19 04:22] LABS: ANION GAP 14.8; CHLORIDE,CL 106 mmol/L (101-111); SODIUM,NA 140 mmol/L (135-145)
[2019-04-19] MEDS ORDERED: Metoclopramide 10 MG/2 ML SDV IVPUSH ONE (04:34)
[2019-04-19] MEDS ORDERED: fentaNYL 100 MCG/2 ML SDV IVPUSH ONE (04:34)
[2019-04-19] MEDS ORDERED: Ketorolac 30 MG/ML SDV IVPUSH ONE (05:07)
== END 2019-04-19 05:53 | disposition home or self-care (01) ==
LOC: DL.ED 03:39
DX: N13.2 Hydronephrosis with renal and ureteral calculous obstruction (principal); F17.210 Nicotine dependence, cigarettes, uncomplicated; Z88.1 Allergy status to other antibiotic agents; Z88.0 Allergy status to penicillin; Z91.018 Allergy to other foods
CPT/HCPCS: 36415; 74177; 80053; 81001; 82150; 83690; 85025; 96361; 96374; 96375; 99284; J1170; J1885; J2405; J2765; J3010; J7030; Q9967

== ENCOUNTER 2021-08-29 21:26 | Emergency (ER) | payer BC, MEDICAID ==
[2021-08-29] MEDS ORDERED: Sodium Chloride 0.9% 1,000 ML IV ONE (22:46)
[2021-08-29] MEDS ORDERED: Ketorolac 30 MG/ML SDV IVPUSH ONE (22:47)
[2021-08-29] MEDS ORDERED: Tamsulosin 0.4 MG Cap.ER PO ONE (22:47)
[2021-08-29] MEDS ORDERED: Ketorolac 30 MG/ML SDV ONE (23:00)
[2021-08-29] MEDS ORDERED: Ondansetron 4 MG/2 ML SDV ONE (23:06)
[2021-08-29 23:12] LABS: AMPHETAMINES,URINE NEGATIVE (NEGATIVE); BARBITURATES,URINE NEGATIVE (NEGATIVE); BENZODIAZEPINE,URINE NEGATIVE (NEGATIVE); MDMA (ECSTASY), URINE NEGATIVE (NEGATIVE); METHADONE,URINE NEGATIVE (NEGATIVE); METHAMPHETAMINES,URINE NEGATIVE (NEGATIVE); OPIATES,URINE NEGATIVE (NEGATIVE); OXYCODONE,URINE NEGATIVE (NEGATIVE); PHENCYCLIDINE,URINE NEGATIVE (NEGATIVE); TCA,URINE NEGATIVE (NEGATIVE)
[2021-08-29 23:14] VITALS: BP 130/90; PULSE 66
[2021-08-29] MEDS ORDERED: Ondansetron 4 MG/2 ML SDV IVPUSH ONE (23:16)
[2021-08-29] MEDS ORDERED: Ketorolac 30 MG/ML SDV IM ONE (23:54)
== END 2021-08-30 00:22 | disposition home or self-care (01) ==
LOC: DL.ED 21:26
DX: N20.0 Calculus of kidney (principal); Z88.0 Allergy status to penicillin; Z88.1 Allergy status to other antibiotic agents; Z91.010 Allergy to peanuts
CPT/HCPCS: 80305; 81001; 96372; 96374; 96375; 99284; A9270; J1885; J2405; J7030